=== PATIENT | male | born 1980 | race Caucasian/White ===

== ENCOUNTER 2018-02-22 11:01 | Emergency (ER) | payer SELFPAY ==
[~2018-02-22 11:01] MED LIST: Sodium Chloride Irrig Solution 250 ML BOT ONE
[2018-02-22] MEDS ORDERED: Acetaminophen/Codeine 30-300mg Tablet ONE (11:46)
[2018-02-22] MEDS ORDERED: Cephalexin 250 MG CAP ONE (11:46)
[2018-02-22] MEDS ORDERED: Adacel (T-DAP) 0.5 ML VIAL ONE (11:46)
[2018-02-22 12:11] LABS: Band 5 % (5-11); Hemoglobin 14.2 g/dL (14.0-18.0); Lymphocytes 9 % (21-51); MDiff Complete? YES; Mean Corpuscular HGB CONC 33.5 g/dL (32.0-36.0); Mean Corpuscular Hemoglobin 29.4 pg (27.0-31.0); Mean Corpuscular Volume 87.8 fl (80.0-94.0); Mean Platelet Volume 5.3 fL (7.4-10.4); Monocytes 9 % (0-10); Neutrophil 77 % (42-75); PLT Morphology Comment Appears Increased; Platelet Count 559 thou/uL (130-400); RBC Distribution Width 12.2 % (11.5-14.5); Red Blood Cell (RBC) Count 4.84 mill/uL (4.70-6.10); White Blood Cell (WBC) Count 21.9 thou/uL (4.8-10.8)
[2018-02-22 12:22] LABS: ALT (SGPT) 14 U/L (8-55); AST (SGOT) 11 U/L (5-34); Acetaminophen Less than 6.0 mcg/mL (10.0-30.0); Albumin 4.1 g/dL (3.5-5.0); Alcohol Less than 10 mg/dL (Less than 10); Alkaline Phosphatase 118 U/L (40-150); Anion Gap 17 mmol/L (10-20); BUN (Urea Nitrogen) 11 mg/dL (8.9-20.6); Bilirubin, Total 0.6 mg/dL (0.2-1.2); Calc. Creatinine Clearance 0 mL/min (70-130); Calcium 10.3 mg/dL (7.8-10.44); Carbon Dioxide 26 mmol/L (22-29); Chloride 99 mmol/L (98-107); Estimated GFR-MDRD 88; Globulin 3.9 g/dL (2.4-3.5); Glucose 90 mg/dL (70-105); Potassium 4.4 mmol/L (3.5-5.1); Salicylate Less than 8.0 mg/dL (15.0-30.0); Sodium 138 mmol/L (136-145)
--- NOTE | 2018-02-22 14:07 | CT ---
CT OF FACIAL BONES PERFORMED WITHOUT CONTRAST ENHANCEMENT: Date: 02/22/18 HISTORY: Facial trauma. FINDINGS: The nasal bone is intact. There is deformity to the left zygomatic arch, which appears to be old as I do not see a definite acute fracture line. The right zygomatic arch is normal in appearance. The sin uses are clear other than some minimal mucosal change within the ethmoid air cells. No orbital or max illary fractures are seen. Mandible appears intact. Condyles are in normal position. IMPRESSION: Old-appearing left zygomatic arch fracture. No definite acute injury. POS: [facility]
== END 2018-02-22 13:50 | disposition short-term general hospital (02) ==
LOC: MADERS 11:01
DX: S01.81XA Laceration without foreign body of other part of head, initial encounter (principal); X58.XXXA Exposure to other specified factors, initial encounter
CPT/HCPCS: 36415; 70486; 80053; 80307; 85025; 90471; 90715

== ENCOUNTER 2018-05-03 12:36 | Emergency (ER) | payer SELFPAY ==
[~2018-05-03 12:36] MED LIST changes: +Sodium Chloride 0.9% 1,000 ML BAG ONE; +Sodium Chloride 0.9% 100 ML BAG ONE; -Sodium Chloride Irrig Solution 250 ML BOT ONE
[2018-05-03] MEDS ORDERED: Lorazepam 2 MG/ML VIAL ONE (12:47)
[2018-05-03 13:06] LABS: #Basophils 0.1 thou/uL (0.0-0.2); #Eosinphils 0.2 thou/uL (0.0-0.7); #Lymphocytes 2.6 thou/uL (1.20-3.40); #Monocytes 0.7 thou/uL (0.11-0.59); %Basophils 0.9 % (0.0-1.0); %Eosinophils 2.3 % (0.0-10.0); %Lymphocytes 30.4 % (21.0-51.0); %Monocytes 8.1 % (0.0-10.0); %Neutrophils 58.4 % (42.0-75.0); Hemoglobin 12.6 g/dL (14.0-18.0); Mean Corpuscular HGB CONC 34.2 g/dL (32.0-36.0); Mean Corpuscular Hemoglobin 29.6 pg (27.0-31.0); Mean Corpuscular Volume 86.5 fL (78.0-98.0); Mean Platelet Volume 5.9 fL (7.4-10.4); Platelet Count 257 thou/uL (130-400); RBC Distribution Width 13.5 % (11.5-14.5); Red Blood Cell (RBC) Count 4.27 mill/uL (4.70-6.10); White Blood Cell (WBC) Count 8.5 thou/uL (4.8-10.8)
[2018-05-03] MEDS ORDERED: Phenytoin Sodium 100 MG/2 ML VIAL ONE ×2 (13:09→13:10)
[2018-05-03 13:22] LABS: Anion Gap 13 mmol/L (10-20); BUN (Urea Nitrogen) 8 mg/dL (8.9-20.6); Calc. Creatinine Clearance 0 mL/min (70-130); Calcium 8.6 mg/dL (7.8-10.44); Carbon Dioxide 28 mmol/L (22-29); Chloride 105 mmol/L (98-107); Estimated GFR-MDRD Greater than 90; Glucose 114 mg/dL (70-105); Potassium 3.5 mmol/L (3.5-5.1); Sodium 142 mmol/L (136-145)
[2018-05-03 14:58] LABS: Bilirubin Negative (Negative); Blood, Urine Trace (Negative); Glucose, Urine (Dipstick) Negative (Negative); Leukocyte Negative (Negative); Nitrite Negative (Negative); Protein, Urine (Dipstick) Negative (Neg-Trace); pH, Urine 7.5 (5.0-9.0)
[2018-05-03 15:04] LABS: Bacteria/HPF Rare-Few HPF (None Seen); Clarity Hazy (Clear); Squamous Epithelial None Seen HPF (0-3); WBC/HPF 0-3 HPF (0-3)
[2018-05-03 15:08] LABS: Amphetamine Not Detected (NotDetected); Barbiturates Screen Detected (NotDetected); Benzodiazepine Screen Not Detected (NotDetected); Cocaine Metabolite Screen Not Detected (NotDetected); Medtox Control Line Valid? VALID (VALID); Methadone Not Detected (NotDetected); Methamphetamine Not Detected (NotDetected); Opiate Screen Not Detected (NotDetected); Oxycodone Screen Not Detected (NotDetected); Phencyclidine (PCP) Not Detected (NotDetected); THC/Cannabinoid Screen Detected (NotDetected); Tricyclic Screen Not Detected (NotDetected)
--- NOTE | 2018-05-03 15:22 | CT ---
NONCONTRAST CT HEAD: 05/03/2018 HISTORY: Altered mental status. COMPARISON: None available. FINDINGS: There is no evidence of hemorrhage, acute infarction, mass effect, or midline shift. The ventricular system is normal in size, shape, and position. Mucosal thickening is present in the ethmoid air colten ls bilaterally. The visualized mastoid air cells are clear. The calvarial structures are intact. IMPRESSION: No acute intracranial abnormality is demonstrated. POS: [facility]
== END 2018-05-03 15:40 | disposition short-term general hospital (02) ==
LOC: MADERS 12:36
DX: R56.9 Unspecified convulsions (principal); F17.210 Nicotine dependence, cigarettes, uncomplicated
CPT/HCPCS: 36415; 70450; 80048; 80306; 81003; 81015; 85025; 96361; 96365; 96375; J1165; J2060; J7050

== ENCOUNTER 2018-10-06 15:19 | Emergency (ER) | payer SELFPAY | END 2018-10-06 16:30 | disposition home or self-care (01) | LOC: MADERS 15:19 | DX: R56.9 Unspecified convulsions (principal); F17.210 Nicotine dependence, cigarettes, uncomplicated | CPT/HCPCS: 99284 ==